=== PATIENT | female | born 1985 | race Caucasian/White ===

== ENCOUNTER 2023-06-08 00:29 | Inpatient (IN) | payer OTHER ==
[2023-06-08] VITALS (12 sets, daily range): BP systolic 117–143; BP diastolic 60–82; PULSE 92–121; RESP 13–20; TEMP 95.8–98.4; O2SAT 96–100
[~2023-06-08] VITALS: Ht 170.2 cm; Wt 56.0 kg
[2023-06-08] MEDS ORDERED: PANTOPRAZOLE 40 MG INJ VIAL IVP ONE ×2 (01:40→09:00)
[2023-06-08 02:01] LABS: MEAN CORPUSCULAR HEMOGLOBIN 33 pg (27-31); MEAN CORPUSCULAR HGB CONC 33 g/dL (33-37)
[2023-06-08 02:21] LABS: HEMATOCRIT 26.1 % (36-48); HEMOGLOBIN 8.7 g/dL (12.0-16.0); PLATELET COUNT (AUTO) 245 K/uL (140-450); RED BLOOD CELL COUNT(AUTO) 2.64 MIL/uL (4.20-5.40); RED CELL DISTRIBUTION WIDTH 21.5 % (11.6-13.7)
[2023-06-08 02:29] LABS: ALBUMIN 1.8 g/dL (3.4-5.0); ANION GAP 15.3 (8-16); CALCIUM 8.3 mg/dL (8.5-10.1); CARBON DIOXIDE 16.5 mmol/L (21-32); CREATININE 0.4 mg/dL (0.6-1.3)
[2023-06-08 02:41] LABS: TOTAL PROTEIN, SERUM 5.9 g/dL (6.4-8.2)
[2023-06-08 02:47] LABS: POTASSIUM 2.8 mmol/L (3.5-5.1); TOTAL BILIRUBIN 27.1 mg/dL (0.0-1.0)
[2023-06-08 02:48] LABS: INR 6.94 (0.8-1.2); PROTHROMBIN TIME 66.5 secs (10.8-13.4)
[2023-06-08 02:50] LABS: LYMPHOCYTES % (MANUAL) 2 % (20-46); MONOCYTES % (MANUAL) 1 % (5-12)
[2023-06-08] MEDS ORDERED: POTASSIUM CHLORIDE 10 MEQ TABER PO ONE (02:50)
[2023-06-08] MEDS ORDERED: NACL 0.9% 1,000 ML IV ONE (02:50)
[2023-06-08] MEDS ORDERED: cefTRIAXone 1,000 MG VIAL ONE ×2 (03:02→05:14)
[2023-06-08 03:28] LABS: LACTIC ACID 1.6 mmol/L (0.4-2.0)
[2023-06-08] MEDS ORDERED: LORazepam 1 MG TAB PO PRN (03:35)
[2023-06-08] MEDS ORDERED: DEXT 5% /NACL 0.9% 1,000 ML IV SCH (03:35)
[2023-06-08] MEDS ORDERED: POTASSIUM CHLORIDE 10 MEQ TABER PO PRN (03:35)
[2023-06-08] MEDS ORDERED: ZOLPIDEM 5 MG TAB PO PRN (03:35)
[2023-06-08] MEDS ORDERED: ACETAMINOPHEN 325 MG TAB PO PRN (03:35)
[2023-06-08] MEDS ORDERED: MAG SULF 2000 MG/WATER PREMIX 50 ML IV PRN (03:35)
[2023-06-08] MEDS ORDERED: HYDROcodone/APAP 5/325 MG 1 TAB TAB PO PRN (03:35)
[2023-06-08] MEDS ORDERED: OCTREOTIDE ACETATE 1.25 MG in NACL 0.9% 250 ML IV SCH (03:40)
[2023-06-08 04:27] LABS: APPEARANCE,URINE CLOUDY (CLEAR); BILIRUBIN,URINE 3+ (NEGATIVE); BLOOD, URINE 2+ (NEGATIVE); LEUKOCYTE ESTERASE ,URINE 2+ (NEGATIVE); NITRITE, URINE NEGATIVE (NEGATIVE); PH,URINE 6.5 (5.0-9.0); PROTEIN,URINE 2+ (NEGATIVE); UGLUCOSE TRACE (NEGATIVE)
[2023-06-08 04:29] LABS: COLOR,URINE AMBER (YELLOW)
[2023-06-08 04:30] LABS: ICTOTEST POSITIVE (NEGATIVE)
[2023-06-08 04:33] LABS: RBC,URINE 11-20 (MOD) /HPF (0-5); SQUAMOUS EPITHELIAL CELL,UR 4-10 (MOD) /LPF (0-3 (FEW)); WBC,URINE 60-80 /HPF (0-5)
[2023-06-08 04:34] LABS: BACTERIA,URINE 4+ /HPF (None Seen); COARSE GRANULAR CASTS,URINE 0-5 /LPF (None Seen)
[2023-06-08] MEDS ORDERED: PHYTONADIONE 10 MG in NACL 0.9% 50 ML IV ONE (08:45)
[2023-06-08] MEDS ORDERED: PHYTONADIONE 10 MG in NACL 0.9% 50 ML IV SCH (09:15)
[2023-06-08] MEDS: KCL 20 MEQ IN 100 mL PREMIX 200 ML IV PRN (09:33)
[2023-06-08 10:05] LABS: BASOPHILS # (AUTO) 0.3 K/uL (0.00-0.22); BASOPHILS % (AUTO) 0.6 % (0.0-2.0); EOSINOPHILS # (AUTO) 0.2 K/uL (0-0.4); EOSINOPHILS % (AUTO) 0.4 % (0.0-4.0); HEMATOCRIT 23.6 % (36-48); HEMOGLOBIN 7.9 g/dL (12.0-16.0); LYMPHOCYTES # (AUTO) 5.8 K/uL (2.5-16.5); LYMPHOCYTES % (AUTO) 11.7 % (20.5-51.1); MEAN CORPUSCULAR HEMOGLOBIN 33 pg (27-31); MEAN CORPUSCULAR HGB CONC 34 g/dL (33-37); MEAN CORPUSCULAR VOLUME 99.3 fL (80-94); MONOCYTES # (AUTO) 1.9 K/uL (0.8-1.0); MONOCYTES % (AUTO) 3.8 % (1.7-9.3); NEUTROPHILS # (AUTO) 41.3 K/uL (1.8-7.7); NEUTROPHILS % (AUTO) 83.5 % (42.2-75.2); PLATELET COUNT (AUTO) 220 K/uL (140-450); RED BLOOD CELL COUNT(AUTO) 2.38 MIL/uL (4.20-5.40)
[2023-06-08 10:09] LABS: ALBUMIN 1.7 g/dL (3.4-5.0); ANION GAP 13.8 (8-16); CALCIUM 7.8 mg/dL (8.5-10.1); CARBON DIOXIDE 16.3 mmol/L (21-32); CREATININE 0.3 mg/dL (0.6-1.3); POTASSIUM 3.1 mmol/L (3.5-5.1); TOTAL BILIRUBIN 24.2 mg/dL (0.0-1.0)
[2023-06-08 10:10] LABS: WHITE BLOOD COUNT (AUTO) 49.5 K/uL (4.8-10.8)
[2023-06-08 10:15] LABS: PROTHROMBIN TIME 77.6 secs (10.8-13.4)
[2023-06-08 10:16] LABS: INR 8.17 (0.8-1.2)
[2023-06-08 10:22] LABS: TOTAL PROTEIN, SERUM 5.4 g/dL (6.4-8.2)
[2023-06-08] MEDS: MORPHINE SULFATE 4 MG/ML SYR IVP PRN (10:40)
[2023-06-08] MEDS: OCTREOTIDE ACETATE 1.25 MG in NACL 0.9% 250 ML IV SCH (10:49)
[2023-06-08] MEDS: PENTOXIFYLLINE 400 MG TABER PO SCH ×2 (12:42→17:38)
[2023-06-08] MEDS: POTASSIUM CHL 20MEQ/D5-NS 1,000 ML IV SCH (12:43)
[2023-06-08] MEDS: metroNIDAZOLE 500 MG/NS PREMIX 100 ML IV SCH ×2 (14:31→20:27)
[2023-06-08] MEDS: PANTOPRAZOLE 80 MG in NACL 0.9% 100 ML IVP SCH (17:27)
[2023-06-08] MEDS: LACTULOSE 20 GM/30 ML UDC PO SCH (17:38)
[2023-06-08] MEDS: VANCOMYCIN HCL 25 MG/ML SOLN PO SCH ×2 (17:44→23:12)
[2023-06-08] MEDS ORDERED: VANCOMYCIN 500 MG VIAL PO SCH (18:00)
[2023-06-08] MEDS: RIFAXIMIN 550 MG TAB PO SCH (21:02)
[2023-06-09] VITALS (16 sets, daily range): BP systolic 125–144; BP diastolic 66–85; PULSE 91–121; RESP 11–18; TEMP 96.4–97.1; O2SAT 97–100
[2023-06-09] MEDS: MORPHINE SULFATE 4 MG/ML SYR IVP PRN ×2 (01:02→09:25)
[2023-06-09] MEDS: PANTOPRAZOLE 80 MG in NACL 0.9% 100 ML IVP SCH ×2 (03:34→11:01)
[2023-06-09] MEDS: metroNIDAZOLE 500 MG/NS PREMIX 100 ML IV SCH ×3 (04:17→22:23)
[2023-06-09] MEDS: VANCOMYCIN HCL 25 MG/ML SOLN PO SCH ×4 (05:39→23:45)
[2023-06-09 05:52] LABS: HEMATOCRIT 21.3 % (36-48); MEAN CORPUSCULAR HEMOGLOBIN 34 pg (27-31); MEAN CORPUSCULAR HGB CONC 33 g/dL (33-37); MEAN CORPUSCULAR VOLUME 103.1 fL (80-94); PLATELET COUNT (AUTO) 213 K/uL (140-450); RED BLOOD CELL COUNT(AUTO) 2.07 MIL/uL (4.20-5.40); RED CELL DISTRIBUTION WIDTH 20.1 % (11.6-13.7)
[2023-06-09 05:56] LABS: WHITE BLOOD COUNT (AUTO) 44.5 K/uL (4.8-10.8)
[2023-06-09 05:57] LABS: HEMOGLOBIN 6.9 g/dL (12.0-16.0)
[2023-06-09 06:10] LABS: ANION GAP 18.9 (8-16); CARBON DIOXIDE 13.2 mmol/L (21-32); CREATININE 0.4 mg/dL (0.6-1.3); POTASSIUM 3.1 mmol/L (3.5-5.1)
[2023-06-09 06:26] LABS: LYMPHOCYTES % (MANUAL) 6 % (20-46); MONOCYTES % (MANUAL) 2 % (5-12)
[2023-06-09 06:28] LABS: PLATELET ESTIMATE ADEQUATE
[2023-06-09] MEDS: PENTOXIFYLLINE 400 MG TABER PO SCH ×3 (08:10→17:07)
[2023-06-09] MEDS ORDERED: SPIRONOLACTONE 25 MG TAB PO SCH (09:00)
[2023-06-09] MEDS ORDERED: prednisoLONE 15 MG/5 ML UDC PO SCH (09:00)
[2023-06-09] MEDS: RIFAXIMIN 550 MG TAB PO SCH ×2 (09:15→20:58)
[2023-06-09] MEDS: LACTULOSE 20 GM/30 ML UDC PO SCH ×3 (09:16→17:07)
[2023-06-09] MEDS: OCTREOTIDE ACETATE 1.25 MG in NACL 0.9% 250 ML IV SCH (10:56)
[2023-06-09] MEDS: POTASSIUM CHL 20MEQ/D5-NS 1,000 ML IV SCH (11:29)
[2023-06-09] MEDS ORDERED: MORPHINE SULFATE 2 MG/ML SYR IVP PRN (13:20)
[2023-06-09] MEDS ORDERED: FUROSEMIDE 20 MG/2 ML VIAL IVP SCH (13:30)
[2023-06-09] MEDS ORDERED: POTASSIUM CHLORIDE 10 MEQ TABER PO SCH (14:30)
[2023-06-09] MEDS ORDERED: MAG SULF 2000 MG/WATER PREMIX 50 ML IV SCH (14:30)
[2023-06-09 21:30] LABS: BASOPHILS # (AUTO) 0.2 K/uL (0.00-0.22); BASOPHILS % (AUTO) 0.4 % (0.0-2.0); EOSINOPHILS # (AUTO) 0.2 K/uL (0-0.4); EOSINOPHILS % (AUTO) 0.4 % (0.0-4.0); HEMATOCRIT 25.2 % (36-48); HEMOGLOBIN 8.5 g/dL (12.0-16.0); LYMPHOCYTES # (AUTO) 10.1 K/uL (2.5-16.5); LYMPHOCYTES % (AUTO) 22.5 % (20.5-51.1); MEAN CORPUSCULAR HEMOGLOBIN 33 pg (27-31); MEAN CORPUSCULAR HGB CONC 34 g/dL (33-37); MONOCYTES # (AUTO) 1.7 K/uL (0.8-1.0); MONOCYTES % (AUTO) 3.9 % (1.7-9.3); NEUTROPHILS # (AUTO) 32.7 K/uL (1.8-7.7); NEUTROPHILS % (AUTO) 72.8 % (42.2-75.2); PLATELET COUNT (AUTO) 220 K/uL (140-450); RED BLOOD CELL COUNT(AUTO) 2.55 MIL/uL (4.20-5.40); RED CELL DISTRIBUTION WIDTH 19.9 % (11.6-13.7)
[2023-06-09 21:37] LABS: WHITE BLOOD COUNT (AUTO) 44.9 K/uL (4.8-10.8)
[2023-06-10] VITALS (23 sets, daily range): BP systolic 112–145; BP diastolic 52–89; PULSE 94–118; RESP 13–24; TEMP 96.5–98.2; O2SAT 95–100
[2023-06-10] MEDS: VANCOMYCIN HCL 25 MG/ML SOLN PO SCH ×3 (06:00→18:00)
[2023-06-10] MEDS ORDERED: MEROPENEM 1,000 MG in NACL 0.9% 50 ML IV SCH (08:00)
[2023-06-10] MEDS: SPIRONOLACTONE 50 MG TAB PO SCH (09:00)
[2023-06-10] MEDS: RIFAXIMIN 550 MG TAB PO SCH ×2 (09:00→20:44)
[2023-06-10 09:30] LABS: ANION GAP 16.2 (8-16); CALCIUM 8.3 mg/dL (8.5-10.1); CARBON DIOXIDE 16.4 mmol/L (21-32); CREATININE 0.5 mg/dL (0.6-1.3)
[2023-06-10 09:32] LABS: HEMATOCRIT 25.7 % (36-48); HEMOGLOBIN 8.6 g/dL (12.0-16.0); MEAN CORPUSCULAR HEMOGLOBIN 33 pg (27-31); MEAN CORPUSCULAR HGB CONC 34 g/dL (33-37); MEAN CORPUSCULAR VOLUME 98.5 fL (80-94); PLATELET COUNT (AUTO) 219 K/uL (140-450); RED CELL DISTRIBUTION WIDTH 20.9 % (11.6-13.7)
[2023-06-10 09:34] LABS: POTASSIUM 2.6 mmol/L (3.5-5.1)
[2023-06-10 09:41] LABS: INR 1.36 (0.8-1.2); PARTIAL THROMBOPLASTIN TIME 32.1 secs (22-35.6); PROTHROMBIN TIME 14.1 secs (10.8-13.4)
[2023-06-10 09:55] LABS: WHITE BLOOD COUNT (AUTO) 42.5 K/uL (4.8-10.8)
[2023-06-10 10:23] LABS: MONOCYTES % (MANUAL) 5 % (5-12)
[2023-06-10] MEDS: PENTOXIFYLLINE 400 MG TABER PO SCH ×3 (10:25→17:00)
[2023-06-10] MEDS: PANTOPRAZOLE 40 MG INJ VIAL IVP SCH (10:26)
[2023-06-10] MEDS: LACTULOSE 20 GM/30 ML UDC PO SCH ×3 (10:26→17:00)
[2023-06-10 10:27] LABS: LYMPHOCYTES % (MANUAL) 20 % (20-46)
[2023-06-10] MEDS: KCL 20 MEQ IN 100 mL PREMIX 200 ML IV PRN (11:42)
[2023-06-10] MEDS: MEROPENEM 1,000 MG in NACL 0.9% 50 ML IV SCH ×2 (11:43→20:42)
[2023-06-10] MEDS: OCTREOTIDE ACETATE 1.25 MG in NACL 0.9% 250 ML IV SCH (11:53)
[2023-06-10] MEDS ORDERED: FOAM DRESSING TP PRN (12:45)
[2023-06-10] MEDS: Z-GUARD PASTE TP SCH (13:00)
[2023-06-10] MEDS: FOAM DRESSING TP SCH (13:00)
[2023-06-10] MEDS ORDERED: MIDAZOLAM 5 MG/5 ML VIAL ONE (15:10)
[2023-06-10] MEDS ORDERED: fentaNYL citrate 0.05 MG/ML VIAL ONE (15:10)
[2023-06-10] MEDS ORDERED: bisacodyL 10 MG SUPP RC SCH (15:51)
[2023-06-10] MEDS ORDERED: POTASSIUM CHLORIDE 20% 40 MEQ/15 ML UDC GT SCH (15:52)
[2023-06-10] MEDS ORDERED: PHYTONADIONE 10 MG in NACL 0.9% 50 ML IV SCH (16:30)
[2023-06-10] MEDS: POTASSIUM CHL 40 MEQ/ D5-1/2NS 1,000 ML IV SCH (16:31)
[2023-06-10] MEDS: SENNA 8.6 MG TAB PO SCH (17:00)
[2023-06-10] MEDS: ERYTHROMYCIN 100 MG in NACL 0.9% 100 ML IV SCH (19:25)
[2023-06-10] MEDS: POLYETHYLENE GLYCOL 17 GM/PKT PO SCH (20:45)
[2023-06-10] MEDS ORDERED: POTASSIUM CHLORIDE 20% 40 MEQ/15 ML UDC ONE (20:46)
[2023-06-10 21:28] LABS: BASOPHILS # (AUTO) 0.1 K/uL (0.00-0.22); BASOPHILS % (AUTO) 0.2 % (0.0-2.0); EOSINOPHILS # (AUTO) 0.2 K/uL (0-0.4); EOSINOPHILS % (AUTO) 0.6 % (0.0-4.0); HEMATOCRIT 25.4 % (36-48); HEMOGLOBIN 8.5 g/dL (12.0-16.0); LYMPHOCYTES # (AUTO) 6.6 K/uL (2.5-16.5); LYMPHOCYTES % (AUTO) 15.1 % (20.5-51.1); MEAN CORPUSCULAR HEMOGLOBIN 33 pg (27-31); MEAN CORPUSCULAR HGB CONC 34 g/dL (33-37); MEAN CORPUSCULAR VOLUME 98.8 fL (80-94); MONOCYTES # (AUTO) 1.3 K/uL (0.8-1.0); MONOCYTES % (AUTO) 3.1 % (1.7-9.3); NEUTROPHILS # (AUTO) 35.6 K/uL (1.8-7.7); PLATELET COUNT (AUTO) 220 K/uL (140-450); RED BLOOD CELL COUNT(AUTO) 2.57 MIL/uL (4.20-5.40); RED CELL DISTRIBUTION WIDTH 20.6 % (11.6-13.7)
[2023-06-10 21:32] LABS: WHITE BLOOD COUNT (AUTO) 43.9 K/uL (4.8-10.8)
[2023-06-11] VITALS (12 sets, daily range): BP systolic 95–139; BP diastolic 61–89; PULSE 98–110; RESP 14–21; TEMP 97.4–98.5; O2SAT 99–100
[2023-06-11] MEDS: ERYTHROMYCIN 100 MG in NACL 0.9% 100 ML IV SCH ×4 (00:39→18:32)
[2023-06-11] MEDS: MEROPENEM 1,000 MG in NACL 0.9% 50 ML IV SCH ×3 (04:33→20:37)
[2023-06-11 08:08] LABS: HEPATITIS A ANTIBODY IGM Negative (Negative); HEPATITIS B CORE AB TOTAL Negative (Negative); HEPATITIS B CORE, IGM Negative (Negative); HEPATITIS B SURFACE ANTIBODY Reactive (.); HEPATITIS B SURFACE ANTIGEN Negative (Negative); HEPATITIS C VIRUS ANTIBODY Non Reactive (Non Reactive)
[2023-06-11 08:33] LABS: ANION GAP 15.6 (8-16); CALCIUM 8.1 mg/dL (8.5-10.1); CARBON DIOXIDE 15.8 mmol/L (21-32); CREATININE 0.4 mg/dL (0.6-1.3); POTASSIUM 3.4 mmol/L (3.5-5.1)
[2023-06-11 08:46] LABS: ALBUMIN 1.7 g/dL (3.4-5.0); BILIRUBIN,DIRECT 19.1 mg/dL (0.0-0.3); TOTAL BILIRUBIN 25.8 mg/dL (0.0-1.0); TOTAL PROTEIN, SERUM 5.3 g/dL (6.4-8.2)
[2023-06-11 09:20] LABS: INR 1.41 (0.8-1.2); PARTIAL THROMBOPLASTIN TIME 31.6 secs (22-35.6); PROTHROMBIN TIME 14.6 secs (10.8-13.4)
[2023-06-11] MEDS: PANTOPRAZOLE 40 MG INJ VIAL IVP SCH (09:37)
[2023-06-11] MEDS: SPIRONOLACTONE 50 MG TAB PO SCH (09:38)
[2023-06-11] MEDS: PENTOXIFYLLINE 400 MG TABER PO SCH ×3 (09:39→17:00)
[2023-06-11] MEDS: POLYETHYLENE GLYCOL 17 GM/PKT PO SCH ×2 (09:39→20:37)
[2023-06-11] MEDS: LACTULOSE 20 GM/30 ML UDC PO SCH ×3 (09:41→17:00)
[2023-06-11] MEDS: SENNA 8.6 MG TAB PO SCH ×3 (09:43→17:00)
[2023-06-11] MEDS: RIFAXIMIN 550 MG TAB PO SCH ×2 (09:46→20:37)
[2023-06-11 10:21] LABS: BASOPHILS # (AUTO) 0.2 K/uL (0.00-0.22); BASOPHILS % (AUTO) 0.4 % (0.0-2.0); EOSINOPHILS # (AUTO) 0.2 K/uL (0-0.4); EOSINOPHILS % (AUTO) 0.5 % (0.0-4.0); HEMATOCRIT 24.6 % (36-48); HEMOGLOBIN 8.2 g/dL (12.0-16.0); LYMPHOCYTES # (AUTO) 8.4 K/uL (2.5-16.5); LYMPHOCYTES % (AUTO) 19.2 % (20.5-51.1); MEAN CORPUSCULAR HEMOGLOBIN 33 pg (27-31); MEAN CORPUSCULAR HGB CONC 34 g/dL (33-37); MEAN CORPUSCULAR VOLUME 98.9 fL (80-94); MONOCYTES # (AUTO) 1.7 K/uL (0.8-1.0); MONOCYTES % (AUTO) 3.8 % (1.7-9.3); NEUTROPHILS # (AUTO) 33.2 K/uL (1.8-7.7); NEUTROPHILS % (AUTO) 76.1 % (42.2-75.2); PLATELET COUNT (AUTO) 220 K/uL (140-450); RED BLOOD CELL COUNT(AUTO) 2.48 MIL/uL (4.20-5.40); RED CELL DISTRIBUTION WIDTH 19.9 % (11.6-13.7)
[2023-06-11 10:49] LABS: WHITE BLOOD COUNT (AUTO) 43.6 K/uL (4.8-10.8)
[2023-06-11] MEDS: FOAM DRESSING TP SCH (13:00)
[2023-06-11 15:24] LABS: HEPATITIS A ANTIBODY TOTAL Positive (Negative)
[2023-06-11] MEDS ORDERED: KCL 20 MEQ IN 100 mL PREMIX 200 ML IV SCH (15:30)
[2023-06-11] MEDS: POTASSIUM CHL 40 MEQ/ D5-1/2NS 1,000 ML IV SCH (16:25)
[2023-06-11] MEDS: Z-GUARD PASTE TP SCH (17:03)
[2023-06-11] MEDS: SUPREP BOWEL PREP KIT 354 ML SOLN.RECON PO SCH (18:34)
[2023-06-11 21:37] LABS: BASOPHILS # (AUTO) 0.3 K/uL (0.00-0.22); BASOPHILS % (AUTO) 0.6 % (0.0-2.0); EOSINOPHILS # (AUTO) 0.3 K/uL (0-0.4); EOSINOPHILS % (AUTO) 0.6 % (0.0-4.0); HEMOGLOBIN 8.8 g/dL (12.0-16.0); LYMPHOCYTES # (AUTO) 1.5 K/uL (2.5-16.5); LYMPHOCYTES % (AUTO) 3.4 % (20.5-51.1); MEAN CORPUSCULAR HEMOGLOBIN 34 pg (27-31); MEAN CORPUSCULAR HGB CONC 34 g/dL (33-37); MEAN CORPUSCULAR VOLUME 99.8 fL (80-94); MONOCYTES # (AUTO) 3.1 K/uL (0.8-1.0); MONOCYTES % (AUTO) 6.9 % (1.7-9.3); NEUTROPHILS % (AUTO) 88.5 % (42.2-75.2); PLATELET COUNT (AUTO) 246 K/uL (140-450); RED BLOOD CELL COUNT(AUTO) 2.61 MIL/uL (4.20-5.40); RED CELL DISTRIBUTION WIDTH 19.8 % (11.6-13.7)
[2023-06-11 21:39] LABS: WHITE BLOOD COUNT (AUTO) 44.1 K/uL (4.8-10.8)
[2023-06-12] VITALS (16 sets, daily range): BP systolic 110–134; BP diastolic 48–83; PULSE 89–117; RESP 13–25; TEMP 97.1–98.2; O2SAT 95–100
[2023-06-12] MEDS: ERYTHROMYCIN 100 MG in NACL 0.9% 100 ML IV SCH ×5 (00:07→23:30)
[2023-06-12] MEDS: MEROPENEM 1,000 MG in NACL 0.9% 50 ML IV SCH ×3 (05:10→21:10)
[2023-06-12] MEDS: SUPREP BOWEL PREP KIT 354 ML SOLN.RECON PO SCH (05:11)
[2023-06-12 05:57] LABS: ANION GAP 17.4 (8-16); CALCIUM 8.6 mg/dL (8.5-10.1); CARBON DIOXIDE 16.1 mmol/L (21-32); CREATININE 0.4 mg/dL (0.6-1.3); POTASSIUM 4.5 mmol/L (3.5-5.1)
[2023-06-12 06:31] LABS: INR 1.35 (0.8-1.2); PARTIAL THROMBOPLASTIN TIME 28.7 secs (22-35.6)
[2023-06-12] MEDS: PENTOXIFYLLINE 400 MG TABER PO SCH ×3 (08:00→17:00)
[2023-06-12] MEDS ORDERED: SODIUM PHOSPHATE 118 ML ENEM RC PRN (09:35)
[2023-06-12] MEDS ORDERED: LACTULOSE 20 GM/30 ML UDC PR SCH (09:35)
[2023-06-12] MEDS: SPIRONOLACTONE 50 MG TAB PO SCH (09:50)
[2023-06-12] MEDS: SENNA 8.6 MG TAB PO SCH ×3 (09:50→17:00)
[2023-06-12] MEDS: RIFAXIMIN 550 MG TAB PO SCH ×3 (09:51→21:13)
[2023-06-12 09:52] LABS: BASOPHILS # (AUTO) 0.5 K/uL (0.00-0.22); BASOPHILS % (AUTO) 1.1 % (0.0-2.0); EOSINOPHILS # (AUTO) 0.3 K/uL (0-0.4); EOSINOPHILS % (AUTO) 0.7 % (0.0-4.0); HEMATOCRIT 28.3 % (36-48); HEMOGLOBIN 9.4 g/dL (12.0-16.0); LYMPHOCYTES # (AUTO) 7.9 K/uL (2.5-16.5); MEAN CORPUSCULAR HEMOGLOBIN 34 pg (27-31); MEAN CORPUSCULAR HGB CONC 33 g/dL (33-37); MONOCYTES # (AUTO) 2.2 K/uL (0.8-1.0); MONOCYTES % (AUTO) 4.8 % (1.7-9.3); NEUTROPHILS # (AUTO) 35.5 K/uL (1.8-7.7); NEUTROPHILS % (AUTO) 76.4 % (42.2-75.2); PLATELET COUNT (AUTO) 279 K/uL (140-450); RED CELL DISTRIBUTION WIDTH 19.6 % (11.6-13.7)
[2023-06-12] MEDS: POLYETHYLENE GLYCOL 17 GM/PKT PO SCH ×3 (09:52→21:11)
[2023-06-12] MEDS: PANTOPRAZOLE 40 MG INJ VIAL IVP SCH (09:52)
[2023-06-12] MEDS: prednisoLONE 15 MG/5 ML UDC PO SCH (09:53)
[2023-06-12 09:56] LABS: WHITE BLOOD COUNT (AUTO) 46.5 K/uL (4.8-10.8)
[2023-06-12] MEDS ORDERED: ALBUTEROL SULFATE/IPRATROPIU 3 ML SOL IH PRN (10:45)
[2023-06-12] MEDS ORDERED: METOCLOPRAMIDE 10 MG/2 ML INJ VIAL IVP SCH (12:00)
[2023-06-12] MEDS: FOAM DRESSING TP SCH (13:00)
[2023-06-12] MEDS: Z-GUARD PASTE TP SCH (13:00)
[2023-06-12] MEDS: ALBUTEROL SULFATE/IPRATROPIU 3 ML SOL IH SCH ×2 (14:07→20:05)
[2023-06-12] MEDS ORDERED: NEOSTIGMINE 1:1000 10 MG/10 ML VIAL IV SCH (14:15)
[2023-06-12] MEDS: LACTULOSE 20 GM/30 ML UDC PR SCH ×2 (14:26→21:14)
[2023-06-12] MEDS ORDERED: SODIUM BICARBONATE 8.4% 100 MEQ, POTASSIUM CHLORIDE 20 MEQ in DEXTROSE 5% 1,000 ML IV SCH (16:30)
[2023-06-12 16:37] LABS: BLOOD GAS PCO2 22.8 mmHg (35-45); BLOOD GAS PH 7.407 (7.35-7.45); BLOOD GAS PO2 73.4 mmHg (75-100)
[2023-06-12 16:38] LABS: BLOOD GAS BASE EXCESS -9.3 mmol/L (-2.0-2.0); BLOOD GAS O2 SAT% 95.3 % (92.0-98.5)
[2023-06-12] MEDS ORDERED: SODIUM BICARBONATE 8.4% PFS 50 MEQ/50 ML SYR IVP ONE (17:42)
[2023-06-12] MEDS: SODIUM BICARBONATE 8.4% 150 MEQ in DEXTROSE 5% 1,000 ML IV SCH (18:18)
[2023-06-12 21:07] LABS: BASOPHILS # (AUTO) 0.1 K/uL (0.00-0.22); BASOPHILS % (AUTO) 0.2 % (0.0-2.0); EOSINOPHILS # (AUTO) 0.1 K/uL (0-0.4); EOSINOPHILS % (AUTO) 0.3 % (0.0-4.0); HEMATOCRIT 25.8 % (36-48); HEMOGLOBIN 8.3 g/dL (12.0-16.0); LYMPHOCYTES # (AUTO) 11.2 K/uL (2.5-16.5); LYMPHOCYTES % (AUTO) 25.9 % (20.5-51.1); MEAN CORPUSCULAR HEMOGLOBIN 33 pg (27-31); MEAN CORPUSCULAR HGB CONC 32 g/dL (33-37); MEAN CORPUSCULAR VOLUME 102.2 fL (80-94); MONOCYTES # (AUTO) 1.7 K/uL (0.8-1.0); NEUTROPHILS % (AUTO) 69.6 % (42.2-75.2); PLATELET COUNT (AUTO) 229 K/uL (140-450); RED BLOOD CELL COUNT(AUTO) 2.52 MIL/uL (4.20-5.40); RED CELL DISTRIBUTION WIDTH 20.1 % (11.6-13.7)
[2023-06-12 21:17] LABS: WHITE BLOOD COUNT (AUTO) 43.1 K/uL (4.8-10.8)
[2023-06-13] VITALS (15 sets, daily range): BP systolic 104–115; BP diastolic 50–73; PULSE 78–118; RESP 10–21; TEMP 97–98.2; O2SAT 97–100
[2023-06-13] MEDS: ALBUTEROL SULFATE/IPRATROPIU 3 ML SOL IH SCH ×4 (01:44→19:28)
[2023-06-13] MEDS: MEROPENEM 1,000 MG in NACL 0.9% 50 ML IV SCH ×3 (05:01→21:18)
[2023-06-13 06:02] LABS: ANION GAP 11.3 (8-16); CALCIUM 8.1 mg/dL (8.5-10.1); CARBON DIOXIDE 23.6 mmol/L (21-32); CREATININE 0.5 mg/dL (0.6-1.3); INR 1.46 (0.8-1.2); PARTIAL THROMBOPLASTIN TIME 33.7 secs (22-35.6)
[2023-06-13 06:11] LABS: POTASSIUM 2.9 mmol/L (3.5-5.1)
[2023-06-13] MEDS: ERYTHROMYCIN 100 MG in NACL 0.9% 100 ML IV SCH ×3 (06:19→18:13)
[2023-06-13] MEDS: KCL 20 MEQ IN 100 mL PREMIX 200 ML IV PRN (06:20)
[2023-06-13] MEDS: PENTOXIFYLLINE 400 MG TABER PO SCH ×3 (08:00→16:08)
[2023-06-13] MEDS: PANTOPRAZOLE 40 MG INJ VIAL IVP SCH (08:23)
[2023-06-13] MEDS: POLYETHYLENE GLYCOL 17 GM/PKT PO SCH (08:50)
[2023-06-13] MEDS: prednisoLONE 15 MG/5 ML UDC PO SCH (08:51)
[2023-06-13] MEDS: RIFAXIMIN 550 MG TAB PO SCH (08:58)
[2023-06-13] MEDS: SENNA 8.6 MG TAB PO SCH ×3 (08:58→21:19)
[2023-06-13] MEDS: LACTULOSE 20 GM/30 ML UDC PR SCH (08:59)
[2023-06-13] MEDS ORDERED: NEOSTIGMINE 1:1000 10 MG/10 ML VIAL IV SCH (09:00)
[2023-06-13] MEDS ORDERED: SPIRONOLACTONE 25 MG TAB PO SCH (09:00)
[2023-06-13 09:13] LABS: BASOPHILS # (AUTO) 0.2 K/uL (0.00-0.22); BASOPHILS % (AUTO) 0.4 % (0.0-2.0); EOSINOPHILS # (AUTO) 0.1 K/uL (0-0.4); EOSINOPHILS % (AUTO) 0.1 % (0.0-4.0); HEMATOCRIT 22.8 % (36-48); HEMOGLOBIN 7.6 g/dL (12.0-16.0); LYMPHOCYTES # (AUTO) 11.1 K/uL (2.5-16.5); LYMPHOCYTES % (AUTO) 25.9 % (20.5-51.1); MEAN CORPUSCULAR HEMOGLOBIN 34 pg (27-31); MEAN CORPUSCULAR HGB CONC 33 g/dL (33-37); MEAN CORPUSCULAR VOLUME 101.4 fL (80-94); MONOCYTES # (AUTO) 1.4 K/uL (0.8-1.0); MONOCYTES % (AUTO) 3.3 % (1.7-9.3); NEUTROPHILS # (AUTO) 30.1 K/uL (1.8-7.7); NEUTROPHILS % (AUTO) 70.3 % (42.2-75.2); PLATELET COUNT (AUTO) 217 K/uL (140-450); RED BLOOD CELL COUNT(AUTO) 2.25 MIL/uL (4.20-5.40); RED CELL DISTRIBUTION WIDTH 19.4 % (11.6-13.7)
[2023-06-13] MEDS ORDERED: POTASSIUM CHLORIDE 20% 40 MEQ/15 ML UDC PO SCH (09:30)
[2023-06-13 09:42] LABS: WHITE BLOOD COUNT (AUTO) 42.8 K/uL (4.8-10.8)
[2023-06-13] MEDS: SODIUM BICARBONATE 8.4% 150 MEQ in DEXTROSE 5% 1,000 ML IV SCH (11:46)
[2023-06-13] MEDS: Z-GUARD PASTE TP SCH (13:00)
[2023-06-13] MEDS: FOAM DRESSING TP SCH (13:00)
[2023-06-13] MEDS ORDERED: POTASSIUM CHLORIDE 20% 40 MEQ/15 ML UDC GT SCH (18:00)
[2023-06-13] MEDS: FAMOTIDINE 20 MG/2 ML VIAL IV SCH (21:19)
[2023-06-13] MEDS: LACTULOSE 20 GM/30 ML UDC PO SCH (21:19)
[2023-06-13 21:52] LABS: BASOPHILS # (AUTO) 0.1 K/uL (0.00-0.22); BASOPHILS % (AUTO) 0.3 % (0.0-2.0); EOSINOPHILS # (AUTO) 0.4 K/uL (0-0.4); EOSINOPHILS % (AUTO) 0.9 % (0.0-4.0); HEMATOCRIT 22.7 % (36-48); HEMOGLOBIN 7.5 g/dL (12.0-16.0); LYMPHOCYTES # (AUTO) 10.9 K/uL (2.5-16.5); LYMPHOCYTES % (AUTO) 24.2 % (20.5-51.1); MEAN CORPUSCULAR HEMOGLOBIN 34 pg (27-31); MEAN CORPUSCULAR HGB CONC 33 g/dL (33-37); MEAN CORPUSCULAR VOLUME 102.7 fL (80-94); MONOCYTES # (AUTO) 1.3 K/uL (0.8-1.0); MONOCYTES % (AUTO) 2.8 % (1.7-9.3); NEUTROPHILS # (AUTO) 32.5 K/uL (1.8-7.7); NEUTROPHILS % (AUTO) 71.8 % (42.2-75.2); PLATELET COUNT (AUTO) 241 K/uL (140-450); RED BLOOD CELL COUNT(AUTO) 2.21 MIL/uL (4.20-5.40); RED CELL DISTRIBUTION WIDTH 19.7 % (11.6-13.7)
[2023-06-13 22:58] LABS: WHITE BLOOD COUNT (AUTO) 45.2 K/uL (4.8-10.8)
[2023-06-14] VITALS (14 sets, daily range): BP systolic 106–125; BP diastolic 48–72; PULSE 103–116; RESP 12–27; TEMP 97.1–98.1; O2SAT 97–100
[2023-06-14] MEDS: ERYTHROMYCIN 100 MG in NACL 0.9% 100 ML IV SCH ×3 (00:46→12:15)
[2023-06-14] MEDS: ALBUTEROL SULFATE/IPRATROPIU 3 ML SOL IH SCH ×4 (01:05→19:25)
[2023-06-14] MEDS: MEROPENEM 1,000 MG in NACL 0.9% 50 ML IV SCH ×3 (04:59→20:10)
[2023-06-14 05:24] LABS: ANION GAP 14.9 (8-16); CALCIUM 8.2 mg/dL (8.5-10.1); CARBON DIOXIDE 21.4 mmol/L (21-32); CREATININE 0.5 mg/dL (0.6-1.3); POTASSIUM 3.3 mmol/L (3.5-5.1)
[2023-06-14 05:25] LABS: BASOPHILS # (AUTO) 0.2 K/uL (0.00-0.22); BASOPHILS % (AUTO) 0.5 % (0.0-2.0); EOSINOPHILS # (AUTO) 0.2 K/uL (0-0.4); EOSINOPHILS % (AUTO) 0.5 % (0.0-4.0); HEMATOCRIT 22.2 % (36-48); HEMOGLOBIN 7.5 g/dL (12.0-16.0); MEAN CORPUSCULAR HEMOGLOBIN 34 pg (27-31); MEAN CORPUSCULAR HGB CONC 34 g/dL (33-37); MEAN CORPUSCULAR VOLUME 101.8 fL (80-94); MONOCYTES # (AUTO) 1.5 K/uL (0.8-1.0); MONOCYTES % (AUTO) 3.9 % (1.7-9.3); NEUTROPHILS # (AUTO) 28.3 K/uL (1.8-7.7); NEUTROPHILS % (AUTO) 72.1 % (42.2-75.2); PLATELET COUNT (AUTO) 217 K/uL (140-450); RED BLOOD CELL COUNT(AUTO) 2.18 MIL/uL (4.20-5.40); RED CELL DISTRIBUTION WIDTH 19.2 % (11.6-13.7)
[2023-06-14 05:29] LABS: INR 1.4 (0.8-1.2); PARTIAL THROMBOPLASTIN TIME 33.4 secs (22-35.6); PROTHROMBIN TIME 14.5 secs (10.8-13.4)
[2023-06-14 05:31] LABS: WHITE BLOOD COUNT (AUTO) 39.3 K/uL (4.8-10.8)
[2023-06-14] MEDS ORDERED: POTASSIUM CHLORIDE 20% 40 MEQ/15 ML UDC GT SCH (09:35)
[2023-06-14] MEDS: PENTOXIFYLLINE 400 MG TABER PO SCH ×3 (09:45→16:52)
[2023-06-14] MEDS: THIAMINE 100 MG TAB PO SCH (09:45)
[2023-06-14] MEDS: MULTIVITAMIN/MINERALS 1 TAB PO SCH (09:45)
[2023-06-14] MEDS: LACTULOSE 20 GM/30 ML UDC PO SCH (09:45)
[2023-06-14] MEDS: FAMOTIDINE 20 MG/2 ML VIAL IV SCH (09:46)
[2023-06-14] MEDS: SPIRONOLACTONE 25 MG TAB PO SCH (09:46)
[2023-06-14] MEDS: prednisoLONE 15 MG/5 ML UDC PO SCH (09:46)
[2023-06-14] MEDS: SODIUM BICARBONATE 8.4% 50 MEQ in DEXTROSE 5% 1,000 ML IV SCH (10:05)
[2023-06-14 11:13] LABS: HEMATOCRIT 21.9 % (36-48); HEMOGLOBIN 7.3 g/dL (12.0-16.0); MEAN CORPUSCULAR HEMOGLOBIN 34 pg (27-31); MEAN CORPUSCULAR HGB CONC 34 g/dL (33-37); MEAN CORPUSCULAR VOLUME 101.1 fL (80-94); PLATELET COUNT (AUTO) 208 K/uL (140-450); RED BLOOD CELL COUNT(AUTO) 2.16 MIL/uL (4.20-5.40); RED CELL DISTRIBUTION WIDTH 19.3 % (11.6-13.7)
[2023-06-14 11:57] LABS: BASOPHILS % (MANUAL) 0 % (0-2); BLASTS, MANUAL % 0 % (0-0); EOSINOPHILS % (MANUAL) 2 % (0-4); LYMPHOCYTES % (MANUAL) 3 % (20-46); METAMYELOCYTES % 0 % (0-0); MONOCYTES % (MANUAL) 3 % (5-12); MYELOCYTES % 0 % (0-0); OTHER CELLS,MANUAL % 0 (0-0); PROMYELOCYTES % 0 % (0-0)
[2023-06-14 11:58] LABS: ANISOCYTOSIS 2+; BURR CELLS 1+; OVALOCYTES 1+; TARGET CELLS 1+; TEAR DROP CELLS 1+
[2023-06-14] MEDS ORDERED: FUROSEMIDE 20 MG/2 ML VIAL IVP SCH (12:38)
[2023-06-14] MEDS: FOAM DRESSING TP SCH (13:38)
[2023-06-14] MEDS: Z-GUARD PASTE TP SCH (13:38)
[2023-06-14] MEDS ORDERED: POTASSIUM CHLORIDE 20% 40 MEQ/15 ML UDC ONE (16:46)
[2023-06-14] MEDS: ONDANSETRON 4 MG/2 ML VIAL IVP PRN (16:52)
[2023-06-14] MEDS ORDERED: POTASSIUM CHLORIDE 20% 40 MEQ/15 ML UDC PO SCH (18:00)
[2023-06-14] MEDS: SENNA 8.6 MG TAB PO SCH (20:10)
[2023-06-14] MEDS ORDERED: LORazepam 2 MG/ML VIAL IM/IVP PRN (23:55)
[2023-06-15] VITALS (11 sets, daily range): BP systolic 107–115; BP diastolic 53–61; PULSE 98–121; RESP 16–20; TEMP 97.1–98.1; O2SAT 97–99
[2023-06-15] MEDS: ONDANSETRON 4 MG/2 ML VIAL IVP PRN (00:02)
[2023-06-15] MEDS: ALBUTEROL SULFATE/IPRATROPIU 3 ML SOL IH SCH ×3 (01:00→14:30)
[2023-06-15] MEDS: SODIUM BICARBONATE 8.4% 50 MEQ in DEXTROSE 5% 1,000 ML IV SCH (03:30)
[2023-06-15] MEDS: MEROPENEM 1,000 MG in NACL 0.9% 50 ML IV SCH (08:52)
[2023-06-15] MEDS: MULTIVITAMIN/MINERALS 1 TAB PO SCH (08:53)
[2023-06-15] MEDS: THIAMINE 100 MG TAB PO SCH (08:53)
[2023-06-15] MEDS: PENTOXIFYLLINE 400 MG TABER PO SCH ×2 (08:53→12:52)
[2023-06-15] MEDS: SPIRONOLACTONE 25 MG TAB PO SCH (08:53)
[2023-06-15] MEDS ORDERED: LACTULOSE 20 GM/30 ML UDC PO SCH (09:00)
[2023-06-15] MEDS ORDERED: prednisoLONE 15 MG/5 ML UDC PO SCH ×2 (09:00)
[2023-06-15] MEDS: Z-GUARD PASTE TP SCH (12:53)
[2023-06-15] MEDS: FOAM DRESSING TP SCH (12:53)
[2023-06-15] MEDS ORDERED: POTASSIUM CHLORIDE 20% 40 MEQ/15 ML UDC GT ONE ×2 (13:00→13:05)
[2023-06-15] MEDS ORDERED: ERYTHROMYCIN 200 MG in NACL 0.9% 100 ML IV SCH (13:24)
[2023-06-15] MEDS ORDERED: POTASSIUM CHLORIDE 20% 40 MEQ/15 ML UDC ONE (14:31)
[2023-06-15 15:13] LABS: ALBUMIN 1.5 g/dL (3.4-5.0); BILIRUBIN,DIRECT 17.4 mg/dL (0.0-0.3); TOTAL BILIRUBIN 22.9 mg/dL (0.0-1.0)
[2023-06-15] MEDS ORDERED: MIDODRINE 5 MG TAB PO SCH (19:00)
[2023-06-16] MEDS ORDERED: POTASSIUM CHLORIDE 20% 40 MEQ/15 ML UDC GT SCH (13:30)
== END 2023-06-15 18:30 | DRG 720 ==
LOC: MED 00:29 → MTU 03:37 → OBSVTOIN 13:49 → MLD 14:26 → MIC 14:40 → MTU 06-14 07:00
PROVIDERS: ADMIT Internal Medicine; ATTEND Internal Medicine
PROC: 30233N1 Transfusion of Nonautologous Red Blood Cells into Peripheral Vein, Percutaneous Approach (ICD-10-PCS; 2023-06-09)
PROC: 0DJ08ZZ Inspection of Upper Intestinal Tract, Via Natural or Artificial Opening Endoscopic (ICD-10-PCS; principal; 2023-06-10 14:30)
DX: A41.9 Sepsis, unspecified organism (principal); E43 Unspecified severe protein-calorie malnutrition; K70.40 Alcoholic hepatic failure without coma; K76.82 Hepatic encephalopathy; E72.20 Disorder of urea cycle metabolism, unspecified; K29.71 Gastritis, unspecified, with bleeding; D68.4 Acquired coagulation factor deficiency; K70.11 Alcoholic hepatitis with ascites; D64.9 Anemia, unspecified; N39.0 Urinary tract infection, site not specified; K70.31 Alcoholic cirrhosis of liver with ascites; B96.20 Unspecified Escherichia coli [E. coli] as the cause of diseases classified elsewhere; K56.41 Fecal impaction; G89.4 Chronic pain syndrome; E87.6 Hypokalemia; R74.01 Elevation of levels of liver transaminase levels; B19.20 Unspecified viral hepatitis C without hepatic coma; E80.6 Other disorders of bilirubin metabolism; K80.20 Calculus of gallbladder without cholecystitis without obstruction; K31.84 Gastroparesis; Z68.1 Body mass index [BMI] 19.9 or less, adult
CPT/HCPCS: 36415; 36430; 36600; 71045; 74018; 76700; 80048; 80053; 80076; 81001; 82140; 82803; 83605; 83735; 83880; 84484; 85025; 85610; 85730; 86704; 86706; 86708; 86709; 86803; 86886; 86900; 86901; 86920; 87040; 87081; 87086; 87340; 93005; 94010; 94640; 96365; 96375; 99285; C9113; J0696; J1364; J1940; J2060; J2185; J2250; J2270; J2354; J2405; J2710; J2765; J3010; J3430; J3475; J3480; J3490; J7030; J7060; J7510; P9016; Q0092; Q9967